=== PATIENT | male | born 1965 | race Caucasian/White ===

== ENCOUNTER 2016-06-29 10:05 | Emergency (ER) | payer OTHER ==
[~2016-06-29] VITALS: Ht 180.3 cm; Wt 107.0 kg
[2016-06-29 10:11] VITALS: Ht 180.3 cm; Wt 107.0 kg
[2016-06-29] MEDS ORDERED: NAPR-260 PO (11:14)
[2016-06-29] MEDS ORDERED: HYDR50CA PO (11:14)
[2016-06-29] MEDS ORDERED: CARB200T43 PO (11:14)
[2016-06-29] MEDS ORDERED: PROP40TA4 PO (11:14)
[2016-06-29] MEDS ORDERED: HYD25 PO (11:14)
[2016-06-29] MEDS ORDERED: ATOM80CA PO ×4 (11:14→13:20)
[2016-06-29] MEDS ORDERED: DOXA4TAB3 PO (11:14)
--- NOTE | 2016-06-29 16:42 | ERD ---
DATE OF SERVICE: 06/29/2016 HISTORY OF PRESENT ILLNESS: The patient is a 51-year-old male coming in for refill of his hypertens ion and psych medications. The patient was discharged from halfway on 04/29/2016. He was given a m onth worth of medications. He has had difficulty getting insurance. He does have [employer] , but he is unable to see a provider until 07/29/2016. He has been without his hypertension and psy ch medications and needs a refill to hold him until his appointment on 07/29/2016. He states he is not having suicidal or homicidal ideations. He takes: 1. Carbamazepine 200 mg daily. 2. Hydrochlorothiazide 25 mg daily. 3. Doxazosin 4 mg daily. 4. Propranolol 40 mg b.i.d. 5. Strattera 81 mg daily. 6. Hydroxyzine pamoate 50 mg b.i.d. PAST MEDICAL HISTORY: Patient denies any other medical problems. Denies chest pain or shortness of breath. MEDICAL HISTORY: Restless leg syndrome, arthritis and hypertension. ALLERGIES TO MEDICATIONS: DENIES. SURGICAL HISTORY: Denies. REVIEW OF SYSTEMS: A 12-point review of systems was done. Refer to HPI for positives, all other sy stems negative. PHYSICAL EXAMINATION: VITAL SIGNS: Temperature is 97.5, pulse 86, blood pressure 176/90, respiratory 18, O2 saturation 98 % on room air. Pain intensity is 0/10. GENERAL: The patient is well-appearing, well-nourished, no acute distress. HEENT: Atraumatic. Conjunctivae are pink. Pupils equal, round, and reactive to light. There is no s cleral icterus. Tympanic membranes clear bilaterally. Oropharynx clear. No nystagmus or photophobia . CHEST: Clear to auscultation bilaterally. There are no rales, wheezes or rhonchi. HEART: Regular rate and rhythm. No murmurs, clicks, rubs or gallops. No S3 or S4. ABDOMEN: Soft, nontender and nondistended. Good bowel sounds. No rebound or guarding. No gross george tonitis. No gross organomegaly or masses. No Thompson sign or McBurney point tenderness. NEURO: Alert and oriented. Cranial nerves 2-12 intact. Motor strength in all 4 extremities with 5/5 strength. Sensation grossly intact. Normal speech and gait. Babinski negative. DTR 2+ throughout. SKIN: There is no apparent rash or petechia. The skin is warm and dry. DIAGNOSIS: Medication refill. MEDICAL DECISION MAKING: I have low suspicion for psychiatric emergency at this time. The patient is stable. He is not complaining of suicidal or homicidal ideations. He is a well-appearing male a nd I not feel there is indication for blood work or imaging at this time. DISCHARGE: The patient is discharged stable. Patient is given a prescription for the previous stat ed medications and told to follow up with primary care as previously recommended on 07/29/2016. The patient is told if symptoms change or worsen, to return to the ER. All other questions answered at time of discharge. Discharge summary given at the time of departure. Patient understood and compl ied with plan. Dictated By: CRYSTAL MCCOY PA for ADRYAN LIU/NTS Conf#: [id number] DID#: [id number]
== END 2016-06-29 11:41 | disposition home or self-care (01) ==
LOC: FTE 10:05
DX: Z76.0 Encounter for issue of repeat prescription (principal); I10 Essential (primary) hypertension